=== PATIENT | female | born 1970 | race Caucasian/White ===

== ENCOUNTER 2016-09-12 09:20 | Emergency (ER) | payer OTHER ==
[~2016-09-12] VITALS: Ht 152.4 cm; Wt 67.0 kg
[2016-09-12 09:28] VITALS: Ht 152.4 cm; Wt 67.0 kg
[2016-09-12] MEDS ORDERED: morphine 2 MG INJ IV STA (09:53)
[2016-09-12] MEDS ORDERED: ONDANSETRON 4 MG INJ IV STA (09:53)
[2016-09-12 10:41] LABS: ADD UMIC NO; URINE BILIRUBIN (Dip) NEGATIVE (NEGATIVE); URINE BLOOD (Dip) NEGATIVE (NEGATIVE); URINE COLOR LT. YELLOW (YELLOW); URINE GLUCOSE (Dip) >=1000 % (NEGATIVE); URINE KETONES (Dip) NEGATIVE (NEGATIVE); URINE LEUKOCYTE ESTERASE (Dip) NEGATIVE (NEGATIVE); URINE NITRITE (Dip) NEGATIVE (NEGATIVE); URINE TOTAL PROTEIN (Dip) NEGATIVE (NEGATIVE); URINE UROBILINOGEN (Dip) 0.2 E.U./dL (0.1-1.0)
--- NOTE | 2016-09-12 10:54 | RADRPT ---
PROCEDURE: CT Abdomen and Pelvis without contrast. CLINICAL INDICATION: Abdominal pain. TECHNIQUE: Routine abdominopelvic CT was performed without intravenous contrast and reformatted in the axial, coronal, sagittal planes. Radiation dose: CTDIvol (mGy) = 17.2; total DLP mGy-cm = 971. One or more of the following radiation dose techniques were used: -Automated exposure control. -Adjust of the mA and/or kV according to patient size. -Use of iterative reconstruction technique. COMPARISON: None. FINDINGS: There are multiple stones identified within the descending gallbladder without gallbladder wall thic kening or inflammation. Bilateral adrenal adenomas, largest on the left measuring up to 16 mm. Kidneys demonstrate symmetric attenuation without hydronephrosis or nephrolithiasis. Unenhanced images of the liver, pancreas, and spleen demonstrate no gross abnormality. Mild colonic diverticulosis without diverticulitis. Appendix is within normal limits. There is a t iny fat containing umbilical hernia. Pelvic viscera is grossly unremarkable. No adnexal cyst or mass. No free fluid or fluid collection . There are no concerning bone lesions. IMPRESSION: No abdominopelvic mass, lymphadenopathy, or focal acute inflammatory process. Cholelithiasis. Mild colonic diverticulosis, uncomplicated. Bilateral adrenal adenomas. RPTAT: EE .Luis Felipe Linn MD, Date Time Electronically viewed and signed by .Luis Felipe Linn MD, MD on 09/12/2016 10:57 .C/
--- NOTE | 2016-09-12 11:04 | ERD ---
ER Documentation Chief Complaint Date/Time DATE: 09/12/16 TIME: 11:03 Chief Complaint CAME IN VIA INTAKE DUE TO BACK PAIN WITH NAUSEA HPI 45-year-old female history of cholelithiasis, diabetes type 2 comes emergency room with mid back pain, nausea, shortness of breath and chest pain that started this morning at around 4 AM. Patient states that she has had increasing shortness of breath when she walks over the last few days, has reported nausea as well without any vomiting. Pain is worse with movement, as well as laying down, sitting, it is in the upper back bilaterally. She denies any fevers, chills. She denies cough. No recent travel, leg pain, leg swelling , oral contraceptive use, history of PE, malignancy, and mobility. ROS All systems reviewed and are negative except as per history of present illness. Medications Home Meds Active Scripts Ondansetron (Ondansetron Odt) 4 Mg Tab.rapdis, 4 MG PO Q6H Y for NAUSEA AND/OR VOMITING, #10 TAB Prov:CALITXO MCCULLOUGH PA-C 09/12/16 Naproxen* (Naprosyn*) 500 Mg Tablet, 500 MG PO BID Y for PAIN AND/OR INFLAMMATION, #30 TAB Prov:CALIXTO MCCULLOUGH PA-C 09/12/16 PMhx/Soc Hx Miscellaneous Medical Probl: Yes (GALLSTONE, DM) Hx Alcohol Use: No Hx Substance Use: No Hx Tobacco Use: No Physical Exam Vitals Vital Signs Date Time Temp Pulse Resp B/P Pulse Ox O2 Delivery O2 Flow Rate FiO2 09/12/16 09:28 98.0 90 18 142/80 98 Physical Exam General: Well-developed, well-nourished. The patient appears in no acute distress. HEENT: Head is normocephalic, atraumatic. No scleral icterus. Neck: Supple. Nontender. Lungs: Clear to auscultation. Normal air movement. Heart: Regular rate and rhythm. S1 and S2 are normal. No murmurs, gallops, or rubs. Back: Tender over the bilateral thoracic regions. Abdomen: Soft, nontender, nondistended. Bowel sounds are normoactive. Extremities: No clubbing or cyanosis. Normal pulses. Moving extremities x 4. No weakness. Neurologic: Alert and oriented 3. No focal deficits. Skin: Normal turgor. No rash or lesions. Result Diagram: 09/12/16 1015 09/12/16 1015 Results 24 hrs Laboratory Tests Test 09/12/16 10:15 White Blood Count 10.710^3/ul Red Blood Count 5.3110^6/ul Hemoglobin 14.8g/dl Hematocrit 44.7% Mean Corpuscular Volume 84.2fl Mean Corpuscular Hemoglobin 27.9pg Mean Corpuscular Hemoglobin Concent 33.1g/dl Red Cell Distribution Width 12.9% Platelet Count 70870^3/UL Mean Platelet Volume 11.8fl Neutrophils % 72.6% Lymphocytes % 20.7% Monocytes % 5.6% Eosinophils % 0.6% Basophils % 0.2% Nucleated Red Blood Cells % 0.0/100WBC Neutrophils # 7.810^3/ul Lymphocytes # 2.210^3/ul Monocytes # 0.610^3/ul Eosinophils # 0.110^3/ul Basophils # 0.010^3/ul Nucleated Red Blood Cells # 0.010^3/ul D-Dimer 220.00ng/ml D-Dimer Comment Urine Color LT. YELLOW Urine Clarity CLEAR Urine pH 5.5 Urine Specific [place] 1.015 Urine Ketones NEGATIVE Urine Nitrite NEGATIVE Urine Bilirubin NEGATIVE Urine Urobilinogen 0.2 E.U./dL Urine Leukocyte Esterase NEGATIVE Urine Hemoglobin NEGATIVE Urine Glucose >=1000% Urine Total Protein NEGATIVE Sodium Level 138mmol/L Potassium Level 4.4mmol/L Chloride Level 98mmol/L Carbon Dioxide Level 27mmol/L Anion Gap 17 Blood Urea Nitrogen 12mg/dl Creatinine 0.49mg/dl Glucose Level 270mg/dl Calcium Level 9.9mg/dl Total Bilirubin 0.5mg/dl Direct Bilirubin 0.00mg/dl Indirect Bilirubin 0.5mg/dl Aspartate Amino Transf (AST/SGOT) 30IU/L Alanine Aminotransferase (ALT/SGPT) 27IU/L Alkaline Phosphatase 83IU/L Troponin I < 0.012ng/ml Total Protein 7.8g/dl Albumin 4.4g/dl Globulin 3.40g/dl Albumin/Globulin Ratio 1.29 Lipase 94U/L Current Medications Medications (Trade) Dose Ordered Sig/Colt Route PRN Reason Start Time Stop Time Status Last Admin Dose Admin Morphine Sulfate (morphine) 2 mg ONCE STAT IV 09/12/16 09:53 09/12/16 09:57 DC 09/12/16 10:24 Ondansetron HCl (Zofran Inj) 4 mg ONCE STAT IV 09/12/16 09:53 09/12/16 09:57 DC 09/12/16 10:24 PROCEDURE: CT Abdomen and Pelvis without contrast. CLINICAL INDICATION: Abdominal pain. TECHNIQUE: Routine abdominopelvic CT was performed without intravenous contrast and reformatted in the axial, coronal, sagittal planes. Radiation dose: CTDIvol (mGy) = 17.2; total DLP mGy-cm = 971. One or more of the following radiation dose techniques were used: -Automated exposure control. -Adjust of the mA and/or kV according to patient size. -Use of iterative reconstruction technique. COMPARISON: None. FINDINGS: There are multiple stones identified within the descending gallbladder without gallbladder wall thickening or inflammation. Bilateral adrenal adenomas, largest on the left measuring up to 16 mm. Kidneys demonstrate symmetric attenuation without hydronephrosis or nephrolithiasis. Unenhanced images of the liver, pancreas, and spleen demonstrate no gross abnormality. Mild colonic diverticulosis without diverticulitis. Appendix is within normal limits. There is a tiny fat containing umbilical hernia. Pelvic viscera is grossly unremarkable. No adnexal cyst or mass. No free fluid or fluid collection. There are no concerning bone lesions. IMPRESSION: No abdominopelvic mass, lymphadenopathy, or focal acute inflammatory process. Cholelithiasis. Mild colonic diverticulosis, uncomplicated. Bilateral adrenal adenomas. RPTAT: EE .Luis Felipe Linn MD, MD Date Time Electronically viewed and signed by .Luis Felipe Linn MD, on 09/12/2016 10:57 PROCEDURE: XR Chest. CLINICAL INDICATION: chest pain, abdominal pain TECHNIQUE: Single frontal view of the chest was obtained COMPARISON: None FINDINGS: The heart and mediastinum are within normal limits. The lungs are clear. There is no pleural effusion or pneumothorax. RPTAT: AA IMPRESSION: No acute disease. .Juan R Hearn MD, Date Time Electronically viewed and signed by .Juan R Hearn MD, on 09/12/2016 11: 08 .S/ CC: CALIXTO MCCULLOUGH PA-C Procedures/[facility] ER course: Patient had labs and urine obtained, IV line was established and she was given morphine 2 mg and Zofran 4 mg IV. The patient's abdominal pain was reexamined. Patient was sitting comfortably with improved pain. Patient was not in any distress. 45-year-old female complains of upper back pain, abdominal pain, nausea that started this morning around 4 AM. Patient's workup was thorough including lab work, urine, chest x-ray CT abdomen pelvis. There is no evidence of leukocytosis, transaminitis, evidence of acute cholecystitis, cholangitis, pancreatitis. Chest x-ray was also performed, no evidence of pneumonia. She complained of shortness of breath, there is no evidence of pulmonary embolus, troponin was negative, suspicion for acute coronary syndrome is low. I also consider dissection however patient's back pain is reproducible on palpation, likely musculoskeletal. She was advised to follow-up with her primary care physician, she was informed of the bilateral adrenal adenomas that were seen on CT abdomen pelvis, she has an appointment to see her primary care physician tomorrow I have asked her to follow-up with them regarding this as well as a gallstone. Departure Diagnosis: Primary Impression: Adrenal adenoma Additional Impression: Cholelithiasis Condition: Good CALIXTO MCCULLOUGH PA-C Sep 12, 2016 11:04
--- NOTE | 2016-09-12 11:08 | RADRPT ---
PROCEDURE: XR Chest. CLINICAL INDICATION: chest pain, abdominal pain TECHNIQUE: Single frontal view of the chest was obtained COMPARISON: None FINDINGS: The heart and mediastinum are within normal limits. The lungs are clear. There is no pleural effusion or pneumothorax. RPTAT: AA IMPRESSION: No acute disease. .Juan R Hearn MD, MD Date Time Electronically viewed and signed by .Juan R Hearn MD, on 09/12/2016 11:08 .S/
[2016-09-12 11:10] LABS: ADD SCAN DIFF NO
[2016-09-12 11:14] LABS: BASOPHILS % 0.2 % (0.0-2.0); EOSINOPHILS # 0.1 10^3/ul (0.0-0.5); EOSINOPHILS % 0.6 % (0.0-7.0); HEMATOCRIT 44.7 % (37.0-47.0); HEMOGLOBIN 14.8 g/dl (12.0-16.0); LYMPHOCYTES # 2.2 10^3/ul (0.8-2.9); LYMPHOCYTES % 20.7 % (15.0-51.0); MEAN CORPUSCULAR HEMOGLOBIN 27.9 pg (29.0-33.0); MEAN CORPUSCULAR HGB CONC 33.1 g/dl (32.0-37.0); MEAN CORPUSCULAR VOLUME 84.2 fl (82.0-101.0); MEAN PLATELET VOLUME 11.8 fl (7.4-10.4); MONOCYTE # 0.6 10^3/ul (0.3-0.9); MONOCYTES % 5.6 % (0.0-11.0); NEUTROPHIL # 7.8 10^3/ul (1.6-7.5); NEUTROPHILS % 72.6 % (39.0-77.0); PLATELET COUNT 294 10^3/UL (140-415); RED BLOOD COUNT 5.31 10^6/ul (4.20-5.40); RED CELL DISTRIBUTION WIDTH 12.9 % (11.5-14.5); WHITE BLOOD COUNT 10.7 10^3/ul (4.8-10.8)
[2016-09-12 11:27] LABS: ALBUMIN 4.4 g/dl (3.3-4.9); CHLORIDE 98 mmol/L (97-110); SODIUM 138 mmol/L (135-144)
[2016-09-12 11:28] LABS: POTASSIUM 4.4 mmol/L (3.5-5.1)
[2016-09-12 11:29] LABS: CREATININE 0.49 mg/dl (0.44-1.00)
[2016-09-12 11:30] LABS: ALANINE AMINOTRANSFERASE 27 IU/L (13-69); ALBUMIN/GLOBULIN RATIO 1.29; ALKALINE PHOSPHATASE 83 IU/L (42-121); ANION GAP 17 (8-16); ASPARTATE AMINO TRANSFERASE 30 IU/L (15-46); BILIRUBIN,INDIRECT 0.5 mg/dl (0-1.1); BILIRUBIN,TOTAL 0.5 mg/dl (0.2-1.3); BLOOD UREA NITROGEN 12 mg/dl (7-20); CALCIUM 9.9 mg/dl (8.4-10.2); CARBON DIOXIDE 27 mmol/L (21-31); GLUCOSE 270 mg/dl (70-220); TOTAL PROTEIN 7.8 g/dl (6.1-8.1)
[2016-09-12 11:46] LABS: TROPONIN-I < 0.012 ng/ml (0.00-0.12)
[2016-09-12] MEDS ORDERED: NAPR-260 PO (13:23)
[2016-09-12] MEDS ORDERED: ONDA4TAB14 PO (13:23)
== END 2016-09-12 14:00 | disposition home or self-care (01) ==
LOC: FTE 09:20
DX: D35.00 Benign neoplasm of unspecified adrenal gland (principal); R11.0 Nausea; K80.20 Calculus of gallbladder without cholecystitis without obstruction; E11.9 Type 2 diabetes mellitus without complications
CPT/HCPCS: 36415; 71010; 74176; 80053; 81003; 83690; 84484; 85025; 85378; 93005; 96374; 96375; 99285; J2270; J2405